=== PATIENT | female | born 1990 | race American Indian/Alaskan Native ===

== ENCOUNTER 2017-10-21 20:20 | Emergency (ER) | payer SELFPAY ==
--- NOTE | 2017-10-21 22:48 | Emergency Department Report ---
HPI - General Chief Complaint: Medical Clearance Time Seen by Provider: 10/21/17 22:15 - HPI HPI: This is a 27-year-old -[place] female who presents to the emergency department with a complaint of being out of her insulin for 1-2 days. The patient has insulin-dependent diabetes and takes Levemir 47 units at night and Humalog 10 units with meals plus a sliding scale. She says that she is compliant with her insulin but just ran out. She does not have a primary care physician. She says that she has been filing for Medicaid but has been getting denied. The patient is very frustrated as she says that she also does not have the money to pay for the insulin once it is prescribed. She denies any chest pain, short of breath, nausea, vomiting, fever. ED Past Medical Hx - Past Medical History Previous Medical History?: Yes Hx Diabetes: Yes - Surgical History Past Surgical History?: Yes Additional Surgical History: trach - Social History Smoking Status: Never Smoker Substance Use Type: None ED Review of Systems ROS: Stated complaint: MEDICAL CLEARANCE Other details as noted in HPI Comment: All other systems reviewed and negative Constitutional: denies: chills, fever Eyes: denies: eye pain, eye discharge, vision change ENT: denies: ear pain, throat pain Respiratory: denies: cough, shortness of breath, wheezing Cardiovascular: denies: chest pain, palpitations Gastrointestinal: denies: abdominal pain, nausea, diarrhea Genitourinary: denies: urgency, dysuria, discharge Musculoskeletal: denies: back pain, joint swelling, arthralgia Skin: denies: rash, lesions Neurological: denies: headache, weakness, paresthesias Physical Exam - Physical Exam Vital Signs: Vital Signs 10/21/17 10/21/17 21:03 22:04 Temperature 97.9 F 99.0 F Pulse Rate 98 H 75 Respiratory 17 12 Rate Blood Pressure 131/83 Blood Pressure 128/81 [Right] O2 Sat by Pulse 100 98 Oximetry Physical Exam: GENERAL: The patient is well-developed well-nourished. HENT: Normocephalic. Atraumatic. Patient has moist mucous membranes. EYES: Extraocular motions are intact. Pupils equal reactive to light bilaterally. NECK: Supple. Trachea is midline. CHEST/LUNGS: Clear to auscultation. There is no respiratory distress noted. HEART/CARDIOVASCULAR: Regular. There is no tachycardia. There is no murmur. ABDOMEN: Abdomen is soft, nontender. Patient has normal bowel sounds. There is no abdominal distention. SKIN: Skin is warm and dry. NEURO: The patient is awake, alert, and oriented. The patient is cooperative. The patient has no focal neurologic deficits. The patient has normal speech and gait. MUSCULOSKELETAL: There is no tenderness or deformity. There is no limitation range of motion. There is no evidence of acute injury. ED Course Vital Signs 10/21/17 10/21/17 21:03 22:04 Temperature 97.9 F 99.0 F Pulse Rate 98 H 75 Respiratory 17 12 Rate Blood Pressure 131/83 Blood Pressure 128/81 [Right] O2 Sat by Pulse 100 98 Oximetry ED Medical Decision Making - Lab Data Result diagrams: 10/21/17 23:14 10/21/17 23:14 - Medical Decision Making This patient came in with out of her insulin for the past 24 hours. Patient does appear to have hyperglycemia with a blood sugar of 550 but is not appear to be in diabetic ketoacidosis. She was given IV fluid and IV insulin and her blood sugar came down to 190. Vital signs stable throughout her ED course. Urinalysis does not show an obvious UTI as the patient does not have any leukocyte esterase, nitrites and there are a lot of epithelial cells in the urine as well. Patient was seen by the hospitalist who wrote a brief note and set her up with different cheaper insulin options including Regular Insulin and a different version of 70/30 and he was able to give her a 1 month supply to try out. In the meantime the patient was given multiple referrals for primary care clinics in the area. She is encouraged to return to the ER with any worsening or symptoms or any acute distress. - Differential Diagnosis DKA, HHNK, Hyperglycemia, noncompliance Critical Care Time: No Critical care attestation.: If time is entered above; I have spent that time in minutes in the direct care of this critically ill patient, excluding procedure time. ED Disposition Clinical Impression: Hyperglycemia Uncontrolled diabetes mellitus Qualifiers: Diabetes mellitus type: type 1 Diabetes mellitus complication status: with hyperglycemia Qualified Code(s): E10.65 - Type 1 diabetes mellitus with hyperglycemia Disposition: DC-01 TO HOME OR SELFCARE Is pt being admited?: No Condition: Stable Instructions: Diabetic Hyperglycemia (ED) Additional Instructions: Please follow the new insulin instructions as given to you by the hospitalist, Dr. Prince. I have given you multiple referrals for primary care clinics in the area. Return to the emergency Department with any worsening of your symptoms or any acute distress. Try and stay away from foods that are high in sugar, carbohydrates and starches. Keep a blood sugar log. Referrals: PRIMARY CARE, [Primary Care Provider] - 3-5 Days [facility] [Outside] - 3-5 Days [facility] [Outside] - 3-5 Days [facility] [Outside] - 3-5 Days Time of Disposition: 04:18
[2017-10-22 00:13] LABS: BUN/Creatinine Ratio 15; Blood Urea Nitrogen 15 mg/dL (7-17); Hemolysis Index 0
[2017-10-22 00:15] LABS: Basophils % (Auto) 0.6 % (0.0-1.8); Eosinophils % (Auto) 0.9 % (0.0-4.3); Hematocrit 45.1 % (30.3-42.9); Hemoglobin 14.2 gm/dl (10.1-14.3); Lymphocytes # (Auto) 1.4 K/mm3 (1.2-5.4); Lymphocytes % (Auto) 27.2 % (13.4-35.0); Mean Corpuscular HGB Conc 31 % (30-34); Mean Corpuscular Hemoglobin 27 pg (28-32); Mean Corpuscular Volume 85 fl (79-97); Monocytes # (Auto) 0.3 K/mm3 (0.0-0.8); Monocytes % (Auto) 5.6 % (0.0-7.3); Platelet Count 260 K/mm3 (140-440); Red Cell Distribution Width 15.2 % (13.2-15.2)
[2017-10-22 00:36] LABS: Calcium 8.6 mg/dL (8.4-10.2)
[2017-10-22] MEDS ORDERED: NACL 0.9% 1000 ML 1,000 ML IV ONE (00:39)
[2017-10-22 01:32] LABS: Bacteria,Urine 1+ /HPF (Negative); Bilirubin,Urine NEG (Negative); Blood,Urine LG (Negative); Calcium Oxalate Crystals,Urine FEW; Color,Urine Yellow (Yellow); Mucus,Urine FEW /HPF; Nitrite,Urine NEG (Negative); Urobilinogen,Urine < 2.0 mg/dL (<2.0)
--- NOTE | 2017-10-22 02:49 | Event Note ---
Date: 10/22/17 Patient seen and evaluated labs reviewed Uncontrolled DM UTI Not taking insulin b/c of insurance Was on levemir and Humalog Unable to buy Levemir and Humalog Lost her Medicaid Patient switched to Relion 70/30 [facility] [employer] available for $$25 70/30 40 units in and 35 units in pm Novalog 6 to 10 units before lunch depending on BG Also f/u at [facility] on a regular basis
[2017-10-22 04:40] VITALS: BP 124/81
== END 2017-10-22 04:42 | disposition home or self-care (01) ==
LOC: ED 20:20
DX: E10.65 Type 1 diabetes mellitus with hyperglycemia (principal); Z79.4 Long term (current) use of insulin; Z88.5 Allergy status to narcotic agent; Z88.6 Allergy status to analgesic agent; Z91.018 Allergy to other foods
CPT/HCPCS: 36415; 80048; 81001; 82962; 83930; 84703; 85025; 96361; 96374; 96376; 99283; J7030; J1815